=== PATIENT | female | born 1980 | race Caucasian/White ===

== ENCOUNTER 2016-08-18 14:54 | Emergency (ER) | payer OTHER ==
--- NOTE | 2016-08-27 14:40 | ER ---
ADMIT: 08/18/2016 RM/LOC: [facility] MR#: [id number] [place], [place] [id number] JOAO BUCKLEY [address] [place] [address] Emergency Room Report SEX: F AGE: 36 : 1980 DATE: 08/18/2016 ADDENDUM: This patient comes into the ER because she had a sudden onset of abdominal pain today in the epigastric area that she rates as a 10/10. She feels it is in the epigastric going to the left upper quadrant and goes into her back. She has had no vomiting or diarrhea. She was able to eat, has never had pain like this previously. She has had no abdominal surgeries. On physical exam, her abdomen is soft. There is no rebound tenderness or guarding, and it does appear to be in the left upper quadrant. CBC, CMP, and urinalysis were normal. CT scan of her abdomen and pelvis was negative for any findings and also ultrasound of her gallbladder, pancreas, and liver were negative. DIAGNOSIS: Abdominal pain. I wrote a prescription for [place] and omeprazole, and she should follow up with Dr. Wilburn next week if she is not feeling better with concerns of possibly needing an endoscope. HANNAH Romano / Anatoliy Burnette MD / gregorio JOB #: [id number] CC: Anatoliy Burnette MD, Attending Physician Nathan Wilburn MD, Family Physician
== END 2016-08-18 18:40 | disposition home or self-care (01) ==
LOC: ER 14:54
DX: R10.12 Left upper quadrant pain (principal); F17.210 Nicotine dependence, cigarettes, uncomplicated; Z90.89 Acquired absence of other organs